=== PATIENT | female | born 2000 | race Caucasian/White ===

== ENCOUNTER 2022-02-13 15:20 | Emergency (ER) | payer MEDICAID ==
[~2022-02-13] VITALS: Ht 182.9 cm; Wt 81.6 kg
--- NOTE | 2022-02-13 15:50 | NUR ---
Pt brought back to room 2a by caramel maker and placed on ED gurney in pos of comfort. Pt awaiting EDMD for eval. EDMD stepped out of the dept to go to 3rd floor to remove denise cath from room 304. Pt notified that EDMD might be a few minute and to be patient. Pt understood and is patiently awaiting EDMD.
--- NOTE | 2022-02-13 16:11 | NUR ---
EDMD at bedside to eval pt.
--- NOTE | 2022-02-13 16:20 | NUR ---
EDMD still at bedside discussing dispo with pt.
--- NOTE | 2022-02-13 16:40 | NUR ---
Pt given thorough dc instructions and confirmed understanding of dc instructions. Pt signed out and ambulated out of dept with steady gait. VSS, PE WNL, NAD. No s/sx of distress present.
[2022-02-13 17:13] VITALS: BP 106/72
== END 2022-02-13 16:40 | disposition home or self-care (01) ==
LOC: ER 15:20
DX: G56.02 Carpal tunnel syndrome, left upper limb (principal); I73.00 Raynaud's syndrome without gangrene
CPT/HCPCS: A4663